=== PATIENT | male | born 1960 | race Caucasian/White ===

== ENCOUNTER 2017-08-05 22:02 | Inpatient (IN) | payer BC ==
[~2017-08-05] VITALS: Ht 182.9 cm; Wt 107.5 kg
[~2017-08-05 22:02] MED LIST: CHANTIX1 MG PO; GABAPENTIN600 MG PO; HYDROCODON-ACE1 EAC9 PO; LISINOPRIL2.5 MG PO; MELOXICAM15 MG PO; METFORMIN HCL500 MG PO; NAPROSYN500 MG PO; PREDNISONE10 M1 PO; SIMVASTATIN10 MG PO; TESSALON PERLE100 MG PO; TIZANIDINE HCL2 MG PO; VICODIN 5-3001 EACH PO; ZITHROMAX Z-PA250 MG PO
[2017-08-06 07:20] VITALS: BP 124/70
[2017-08-06 12:46] LABS: MCV 85.8 FL (86-99)
[2017-08-06 12:52] LABS: HEMOGLOBIN 13.4 G/DL (12.5-16.6)
[2017-08-06 13:33] VITALS: BP 99/57
[2017-08-06 15:41] VITALS: BP 95/60
[2017-08-06 20:19] VITALS: BP 117/70; BP 135/91
[2017-08-07 00:29] VITALS: BP 100/57
[2017-08-07 04:16] VITALS: BP 108/75
[2017-08-07 05:05] LABS: CHLORIDE 102 mEq/L (99-109); POTASSIUM 4.4 mEq/L (3.7-5.4); SODIUM 135 mEq/L (136-147)
[2017-08-07 05:06] LABS: GLUCOSE 131 mg/dL (70-99)
[2017-08-07 05:10] LABS: CREATININE 0.9 mg/dL (0.6-1.3); GFR ESTIMATE (CALCULATED) > 59 mL/min/ (58.99-99999)
[2017-08-07 05:11] LABS: UREA NITROGEN (BUN) 19 mg/dL (9-23)
[2017-08-07 06:59] LABS: HEMATOCRIT 41.7 % (38.0-50.0); HEMOGLOBIN 13.9 G/DL (12.5-16.6); MCV 86.5 FL (86-99)
[2017-08-07] MEDS ORDERED: OXYCONTIN10 MG PO (09:22)
[2017-08-07] MEDS ORDERED: OXYCODONE HCL5 MG PO (09:22)
[2017-08-07] MEDS ORDERED: ELIQUIS2.5 MG PO (10:03)
[2017-08-07 12:00] VITALS: BP 121/65
[2017-08-07 15:54] VITALS: BP 112/67
[2017-08-07 19:47] VITALS: BP 108/59
[2017-08-08 00:20] VITALS: BP 111/63
[2017-08-08 04:04] VITALS: BP 105/65
[2017-08-08 07:58] VITALS: BP 102/64
[2017-08-08] MEDS ORDERED: CELEBREX200 MG PO (08:38)
[2017-08-08 12:15] VITALS: BP 118/63
== END 2017-08-08 15:28 | disposition home or self-care (01) | DRG 470 ==
LOC: ENRESERV 22:02 → 2SOUTH 08-06 06:53 → 3WEST 08-06 13:14 → 2SOUTH 08-06 17:05 → 3WEST 08-08 15:28
PROVIDERS: Orthopaedic Surgery
PROC: 0SRB04Z Replacement of Left Hip Joint with Ceramic on Polyethylene Synthetic Substitute, Open Approach (ICD-10-PCS; principal; 2017-08-06)
DX: M16.12 Unilateral primary osteoarthritis, left hip (principal); E11.9 Type 2 diabetes mellitus without complications; E66.9 Obesity, unspecified; Z68.33 Body mass index [BMI] 33.0-33.9, adult; Z87.891 Personal history of nicotine dependence
CPT/HCPCS: 80048; 82948; 85014; 85018; J0690; J1885; J2250; J2405; J7050; J7120; J7643; S0020